=== PATIENT | male | born 1965 | race Caucasian/White ===

== ENCOUNTER 2024-05-15 15:37 | Outpatient (AMB) | payer SELFPAY ==
--- NOTE | 2024-05-15 15:51 | A.OFFPC_ITS ---
Vital Signs 05/15/24 16:02 05/15/24 16:13 Height 5 ft 7.72 in Weight 186 lb 2 oz BMI 28.5 BP 144/88 H 146/80 H Blood Pressure Location Rt brachial Lt brachial Position Sitting Sitting Respiration 12 Pulse 89 Pulse Source Pulse Oximeter Temp 98.3 F Temp Source Oral Pulse Oximetry (%) 95 Oxygen Delivery Method Room Air Intake Visit Reasons: new patient/ need a pcp Intake Note: New patient visit Fitting Room Checker Required: No Allergies No Known Allergies Allergy (Verified 05/15/24 15:59) Tobacco use date assessed: 05/15/24 Dental Screening Dental Screen Date: 05/15/24 Did you have a dental visit in the last 12 months?: Yes Did you have a dental problem in the last 6 months where you did not have access to dental care?: No Was dental information given to patient?: Patient has dentist HPI HPI Comments History of Present Illness Details This is a 59-year-old male with a past medical history of alcohol use and elevat ed blood pressure presenting to [facility] care. His last primary care provider was No San when she was at [place]. 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 He would like fasting labs ordered. He would like a PSA level checked. His blood pressure is elevated. Patient says it has been elevated on off since his 40s. He gets anxious at appointments. He has not taken medication for blood pressure. Admits he needs to lose weight. Eats salty foods. Drinks 2 coffees per day. Nonsmoker. Drinks 5 beers per day, some days drinks none. He his father had colon cancer in his 60s. The patient denies blood in his stools, constipation, diarrhea or abdominal pain. He is agreeable to screening colonoscopy. ROS: Constitutional: No unexplained weight loss, fever, chills, fatigue or night sweats. Eyes: No vision changes Respiratory: No shortness of breath, cough or sputum production. Cardiovascular: No chest pain, chest pressure or chest discomfort. No palpitations or pedal edema. Gastrointestinal: No anorexia, nausea, vomiting or diarrhea. No abdominal pain or blood in stool. Endocrine: No cold or heat intolerance. No polyuria or polydipsia. Psychiatric: No depression or anxiety. No SI/HI. Physical exam: Constitutional: Alert, in no distress. Neck: Supple, Full range of motion. No lymphadenopathy. No palpable thyroid masses. Respiratory: Clear to auscultation. Cardiovascular: S1 S2 regular. No murmurs. Neurologic: No focal neurological deficits. Extremities: Warm and well perfused. No clubbing, cyanosis or edema. Psychiatric: Normal mood and affect [facility] Medical History (Updated 05/15/24 @ 16:58 by ZAHRAA Mcclain) Alcohol use Screening for cardiovascular condition Hypertension Surgical History (Updated 05/15/24 @ 16:12 by Rebecca Murray CMA) Hx of cholecystectomy Family History (Updated 05/15/24 @ 16:22 by ZAHRAA Mcclain) Mother Stroke Asthma Father Hypertension Coronary artery disease Colon cancer Other FH: mental illness Social History Housing: House Patient Tobacco Use Status: Never used Tobacco e-Cigarette/Vaping Use: Never Used Second Hand Smoke Exposure: No service: No Current occupational status: employed Current occupation: Self employed at [employer] Current occupational exposures/hazards: No Cognitive needs: No Hearing needs: No Vision needs: Yes (glasses) Questionnaire PHQ-9 Over the last 2 weeks, how often have you been bothered by any of the following problems? 1. Little interest or pleasure in doing things: not at all 2. Feeling down, depressed, or hopeless: not at all 3. Trouble falling or staying asleep, or sleeping too much: not at all 4. Feeling tired or having little energy: not at all 5. Poor appetite or overeating: not at all 6. Feeling bad about yourself - or that you are a failure or have let yourself or your family down: not at all 7. Trouble concentrating on things, such as reading the newspaper or watching television: not at all 8. Moving or speaking so slowly that other people could have noticed. Or the opposite - being so fidgety or restless that you have been moving around a lot more than usual: not at all 9. Thoughts that you would be better off or of hurting yourself in some way: not at all Total score: 0 Depression Screening Interpretation: Negative Depression Screening Done: Yes 11287 - PHQ-9 Billing: Yes Source: Developed by Drs. Luiz Richardson, Hannah Rogers, Alton White and colleagues, with an educational [place] from [employer]. Thrive Questionnaire Date Thrive assessed: 05/15/24 I am a: Patient What is your living situation today?: I have a steady place to live Within the past 12 months, did the food you bought not last and you didn't have the money to get more?: Never true Within the past 12 months, did you worry whether your food would run out before you got money to buy more?: Never true Do you have trouble paying for medicines?: No Do you have trouble getting transportation to medical appointments?: No Do you have trouble paying your heating and electricity bill?: No Do you have trouble taking care of your child, family member or friend?: No Do you have trouble with day-to-day activities such as bathing, preparing meals, shopping, managing finances, etc.?: No Are you currently unemployed and looking for a job?: No Are you interested in more education?: No Please select the resources that you would like help with: None Currently or been in a relationship where the following occur: No concerns reported THRIVE Score: 0 AUDIT C Alcohol Use Questionnaire (AUDIT-C) 1. How often do you have a drink containing alcohol?: 4 or more times a week 2. How many drinks containing alcohol do you have on a typical day when you are drinking?: 5 or 6 3. How often do you have six or more drinks on one occasion?: Less than monthly Total Score: 7 NAMRATA-7 AMB Questionnaire NAMRATA-7 Date NAMRATA - 7 assessed: 05/15/24 Feeling nervous, anxious, or on edge: 0 = Not at all Not being able to stop or control worryin = Not at all Worrying too much about different things: 0 = Not at all Trouble relaxin = Not at all Being so restless that it is hard to sit still: 0 = Not at all Becoming easily annoyed or irritable: 0 = Not at all Feeling afraid as if something awful might happen: 0 = Not at all Total NAMRATA-7 score (0-4 normal; 5-9 mild; 10-14 moderate; 15-21 severe): 0 Source: Developed by Drs. Luiz Richardson, Hannah Rogers, Alton White and colleagues, with an educational ind[place] from [employer]. NAMRATA-7 Assessment Billing NAMRATA-7 Assessment Tool: NAMRATA-7 Assessment 97604 Physical exam (Primary Care) Vital Signs: Last Vital Signs Temp 98.3 F 05/15/24 16:02 Pulse 89 05/15/24 16:02 Resp 12 05/15/24 16:02 BP 146/80 H 05/15/24 16:13 Pulse Ox 95 05/15/24 16:02 Oxygen Delivery Method Room Air 05/15/24 16:02 BMI result Body Mass Index 28.5 Tobacco/Smoking Status: Tobacco use Status Tobacco use date assessed 05/15/24 05/15/24 15:56 Patient Tobacco Use Status Never used Tobacco 05/15/24 15:56 e-Cigarette/Vaping Use Never Used 05/15/24 15:56 PHQ-9: PHQ-9 Score PHQ-9: Total score 0 05/15/24 16:11 Depression Screening Interpretation: Negative Thrive Assessment: Date of Thrive Assessment Date Thrive assessed 05/15/24 05/15/24 16:11 Currently or been in a relationship where the following occur: No concerns reported Assessment and Plan Assessment & Plan (1) Hypertension: Code(s): I10 - Essential (primary) hypertension Qualifiers: Hypertension type: primary hypertension Qualified Code(s): I10 - Essential (primary) hypertension (2) Screening for cardiovascular condition: Code(s): Z13.6 - Encounter for screening for cardiovascular disorders (3) Alcohol use: Code(s): Z78.9 - Other specified health status Plan Patient instructed to implement lifestyle modification. Recommended decreasing alcohol use, caffeine and sodium consumption. Exercises recommended to promote weight loss. Recommended low carbohydrate diet. He has lost weight with this in the past. He will have fasting labs completed prior to his next appointment which will be a physical exam. We will recheck his blood pressure at that time. He has a blood pressure cuff at home and was instructed to bring a home log with him to the appointment to review since he does describe possible office hypertension. Patient is referred to Gastroenterology for consideration of screening colonoscopy. Follow up in 8 weeks for hypertension and a physical. Orders: Orders Prostate Specific Antigen Today I10 - Essential (primary) hypertension, Z12.5 - Encounter for screening for malignant neoplasm of prostate, Z13.6 - Encounter for screening for cardiovascular disorders Comprehensive Met. Panel Today I10 - Essential (primary) hypertension, Z12.5 - Encounter for screening for malignant neoplasm of prostate, Z13.6 - Encounter for screening for cardiovascular disorders TSH reflex Free T4 Today I10 - Essential (primary) hypertension, Z12.5 - Encounter for screening for malignant neoplasm of prostate, Z13.6 - Encounter for screening for cardiovascular disorders UA CC w/rflx Micro + Cult Today I10 - Essential (primary) hypertension Lipid Panel Today I10 - Essential (primary) hypertension, Z12.5 - Encounter for screening for malignant neoplasm of prostate, Z13.6 - Encounter for screening for cardiovascular disorders Complete Blood Count no Diff Today I10 - Essential (primary) hypertension, Z 12.5 - Encounter for screening for malignant neoplasm of prostate, Z13.6 - Encounter for screening for cardiovascular disorders Referrals Gastroenterology Referral Z12.11 - Encounter for screening for malignant neoplasm of colon Coding Level of Care Code New Pt Level 4 (34389) Complex EM visit Add On G2211 Diagnoses Primary hypertension I10 Hypertension type: primary hypertension Screening for cardiovascular condition Z13.6 Alcohol use Z78.9 Additional Codes NAMRATA-7 Assessment Billing - NAMRATA-7 Assessment Tool: NAMRATA-7 Assessment 88833 ([id number])
[2024-05-15 16:02] VITALS: BP 144/88; PULSE 89; RESP 12; TEMP 36.8; O2SAT 95; BMI 28.5
[2024-05-15 16:13] VITALS: BP 146/80
== END 2024-05-15 16:34 | disposition home or self-care (01) ==
PROVIDERS: Visit Provider Physician Assistant Medical
DX: I10 Essential (primary) hypertension (principal); Z13.6 Encounter for screening for cardiovascular disorders; Z78.9 Other specified health status

== ENCOUNTER → 2024-05-15 15:37 | Outpatient (BNVA) | payer OTHER, SELFPAY | PROVIDERS: Visit Provider Physician Assistant Medical | DX: I10 Essential (primary) hypertension (principal); F10.90 Alcohol use, unspecified, uncomplicated | CPT/HCPCS: 96127; 99202 ==

== ENCOUNTER 2024-05-29 09:11 | Outpatient (REF) | payer OTHER, SELFPAY ==
[2024-05-29 11:26] LABS: Appearance Urine Clear; Color Urine Yellow; Glucose Urine UA Negative (Negative); Leukocyte Esterase Urine Negative (Negative); Nitrite Urine Negative (Negative); Specific Gravity - Urine 1.015 (1.005-1.025); Urine Blood Negative (Negative); Urine Ketones Negative (Negative); Urine Protein Negative (Neg-Trace)
[2024-05-29 11:29] LABS: Hematocrit 42.2 % (42.0-52.0); Hemoglobin 14.7 g/dl (14.0-18.0); Mean Corpuscular HGB Conc 34.8 g/dl (31.0-36.0); Mean Corpuscular Hemoglobin 31.4 pg (27.0-33.0); Mean Corpuscular Volume 90.2 fL (80.0-98.0); Mean Platelet Volume 11.9 fL (9.4-12.4); Platelet Count 240 X10*3/uL (160-400); Red Blood Count 4.68 X10*6/uL (4.60-5.80); Red Cell Distribution Width 12.6 % (11.0-16.0); White Blood Count 6.7 X10*3/uL (4.8-10.8)
[2024-05-29 12:11] LABS: Alanine Aminotransferase 32 U/L (0-40); Albumin Level 4.5 g/dL (3.5-5.0); Alkaline Phosphatase 45 U/L (39-117); Anion Gap 11 (12-20); Aspartate Amino Transferase 22 U/L (5-37); Bilirubin Total 0.5 mg/dL (0.0-1.0); Blood Urea Nitrogen 12 mg/dL (9-16); Calcium 9.3 mg/dL (8.4-10.2); Carbon Dioxide 27 mmol/L (22-29); Chloride 105 mmol/L (96-108); Cholesterol 254 mg/dL (<200); Estimated Glomerular Filt Rate > 60; Glucose Random 101 mg/dL (60-115); HDL Cholesterol 65 mg/dL (>40); LDL Cholesterol Calculated 173 mg/dL (<100); Potassium 4.7 mmol/L (3.3-5.1); Sodium 138 mmol/L (135-145); TSH reflex Free T4 2.14 uIU/mL (0.32-4.0); Total Protein 7.3 g/dL (6.5-8.0); Triglycerides 80 mg/dL (<150)
[2024-05-29 12:21] LABS: Prostate Specific Antigen 0.53 ng/mL (<0.05-4.0)
== END 2024-05-29 09:12 | disposition home or self-care (01) ==
LOC: HO.WFDLDS 09:11
PROVIDERS: Visit Provider Physician Assistant Medical
DX: I10 Essential (primary) hypertension (principal); Z13.6 Encounter for screening for cardiovascular disorders; Z12.5 Encounter for screening for malignant neoplasm of prostate
CPT/HCPCS: 36415; 80053; 80061; 81003; 84153; 84443; 85027

== ENCOUNTER 2025-02-08 09:16 | Outpatient (REF) | payer OTHER, SELFPAY ==
--- NOTE | ~2025-02-08 | FL_ITS ---
EXAMINATION: XR BARIUM SWALLOW CLINICAL INFORMATION: Dysphagia COMPARISON: None available. TECHNIQUE: Barium swallow with thick barium and barium coated saltine crackers was performed in upright view. Thin barium was administered in prone lying position. FINDINGS: Following oral administration of thick barium in upright view there is normal propagation bolus from the oral cavity through the pharynx, esophagus into stomach without obstruction narrowing. There is trace laryngeal penetration but no aspiration seen at the beginning of the scan. This was not seen on subsequent images. On oral administration of barium coated saltine cracker there is oral mastication with normal propagation bolus from the oral cavity through the pharynx, esophagus into stomach without obstruction, narrowing or stricture. No extrinsic compression seen. On placing patient prone lying an oral administration of thin barium there is normal distention of esophagus without any obstruction or narrowing. There is small reducible hiatal hernia with mild gastroesophageal reflux FLUOROSCOPY TIME: 2 minutes 15 seconds DOSE AREA PRODUCT: 1484 uGy-m2 (microgray-meter squared) FL/FL barium swallow IMPRESSION: Small reducible hiatal hernia with mild gastroesophageal reflux . Electronically signed by: Kwame Donohue MD 02/08/2025 12:56 PM EDT
--- OUTSIDE RECORDS SUMMARY | 2025-02-08 09:53 | XMS_ITS | Encounter Summary ---
Author Organization [employer] Address [address] [place] [address] Care Team Providers Care Latin Teacher Name Role Phone Ezekiel Willis Unassigned Primary Care Provider U Sara Roman Primary Care Provider [phone] Erin Rowan DO Primary Care Provider [phone] Encounter Details Date Type Department Care Team (Latest Contact Info) Description 10/16/2021 Abstract [facility] CONVERSIONS Dental, Provider, DDS Social History Tobacco Use Types Packs/Day Years Used Date Smoking Tobacco: Never Assessed Sex and Gender Information Value Date Recorded Sex Assigned at Male 12/25/2022 4:32 PM EDT Legal Sex Male 5:35 PM EDT Gender Identity Male 12/25/2022 4:32 PM EDT Sexual Orientation Straight 10/18/2024 10 :40 AM EST documented as of this encounter Plan of Treatment Not on file documented as of this encounter Visit Diagnoses Not on filedocumented in this encounter Care Teams Latin Teacher Relationship Specialty Start Date End Date Ezekiel Willis Unassigned PCP - General Family Medicine 12/21/22 3 Sara Valdez FNP [address] [place] [address] PCP - General Family Medicine 06/19/23 10/17/24 Erin Rowan DO [address] [place] [address] PCP - General Family Medicine 10/18/24 documented as of this encounter
== END 2025-02-08 09:17 | disposition home or self-care (01) ==
LOC: HO.XRAY 09:16
PROVIDERS: PCP Family Medicine; Visit Provider Family Medicine
DX: R13.10 Dysphagia, unspecified (principal)
CPT/HCPCS: 74220

== ENCOUNTER → 2025-02-08 09:18 | Outpatient (BNV) | payer OTHER, SELFPAY | PROVIDERS: PCP Family Medicine; Visit Provider Radiology Diagnostic Radiology | DX: K44.9 Diaphragmatic hernia without obstruction or gangrene (principal) | CPT/HCPCS: 74246 ==